=== PATIENT | male | born 1960 | race African-American/Black ===

== ENCOUNTER 2021-03-03 05:15 | Inpatient (IN) | payer MEDICAID ==
[~2021-03-03] VITALS: Ht 167.6 cm; Wt 93.2 kg
[2021-03-03] MEDS ORDERED: CHLORTHALIDONE25 MG PO (06:30)
[2021-03-03] MEDS ORDERED: NORVASC10 MG PO (06:30)
[2021-03-03 06:31] LABS: HEMATOCRIT 41.1 % (42.0-54.0); HEMOGLOBIN 13.9 g/dL (13.5-17.5); MCV 88.2 fL (80.0-100.0); MEAN PLATELET VOLUME 8.4 fL (7.4-10.4); PLATELET COUNT 262 10x3/uL (130-400); RBC 4.65 10x6/uL (4.20-6.10); RDW 14.2 % (11.5-14.5)
[2021-03-03] MEDS ORDERED: IBUPROFEN200 MG PO (06:31)
[2021-03-03 06:32] VITALS: BP 150/91; BMI 33.1
[2021-03-03 06:41] LABS: ANION GAP 15.1 mmol/L (8-16); CARBON DIOXIDE 27.1 mmol/L (21.0-32.0); CREATININE - SERUM 1.3 mg/dL (0.6-1.3); POTASSIUM - SERUM 4.2 mmol/L (3.5-5.1)
[2021-03-03 06:53] LABS: APTT 30.7 SECONDS (22.8-39.4); INR 1.13 (0.85-1.17); PROTIME 13.5 SECONDS (11.6-15.0)
--- NOTE | 2021-03-03 11:17 | NUR ---
PATIENT RECOVERED IN SURGICAL SUITE. PHASE 1 RECOVERY STARTED BY ALENA FERRER CRNA AT 0957. JATIN WEAVER RN COMPLETED RECOVERY PHASE 1 BEGINING AT 1014. TRANSPORTED TO OUTPATIENT DEPARTMENT BY RIO WEINER RN AT 1023.
[2021-03-03 14:28] VITALS: BP 122/69; Ht 167.6 cm; Wt 93.2 kg
[2021-03-03 14:29] LABS: EOSINOPHILS 3 % (0-7); LYMPHOCYTES 52 % (15-50); MONOCYTES 9 % (2-11); NEUTROPHILS 36 % (40-80); PLATELET ESTIMATE NORMAL
--- NOTE | 2021-03-03 15:14 | OP ---
PATIENT NAME: EZE VALLADARES MEDICAL RECORD: [id number] :62 LOCATION:D.M2 D.2100 ADMISSION DATE: SURGEON: ELENA TATUM MD DATE OF OPERATION: 03/03/2021 PREOPERATIVE DIAGNOSIS: Symptomatic inguinal scrotal hernia, left. POSTOPERATIVE DIAGNOSES: Symptomatic incarcerated left inguinal scrotal hernia with a sliding component and COVID positivity. PROCEDURE: Open left inguinal hernia repair with preperitoneal polypropylene mesh. SURGEON: Elena Tatum MD ACCESS NURSE: None. BLOOD LOSS: Minimal. ANESTHESIA: General. COMPLICATIONS: None. The risks, possible complications, and alternatives of the procedure were explained to the patient. He elected to proceed. OPERATIVE COURSE: The patient was conveyed to the operating room electively on 03/03/2021. General anesthesia was induced by the anesthesia staff. The abdomen and genitals were sterilely prepped and draped. A transverse incision was accomplished in the left groin. Sharp dissection was carried down through skin and subcutaneous tissue as well as Brennan fascia. The external oblique aponeurosis was then cleaned of overlying connective tissue. I incised the external oblique aponeurosis along the direction of its fibers. I then bluntly dissected down through the internal oblique and transversus abdominis muscles. It was at this time, we were told the patient was COVID positive. A preperitoneal pocket was fashioned bluntly. I was unable to reduce the hernia. I entered the hernia sac. I was able to reduce the contents, which consisted of the patient's sigmoid colon. There was no damage to the sigmoid colon during this procedure. I then reduced the hernia sac in its entirety. I ligated the hernia sac highly with a pursestring 3-0 Vicryl suture. I then excised the sac distal to this. Once I was satisfied with the preperitoneal space, I then sutured 2 ovals of polypropylene mesh together. This was done with a running #1 Surgidac. The mesh was placed in the preperitoneal space. Once I was satisfied with placement of the mesh in the preperitoneal space, I allowed the internal oblique and transversus abdominis muscles to come together. I incorporated a portion of the underlying mesh with these 0 Surgidac sutures and placed in a horizontal mattress fashion. The external oblique aponeurosis was closed with running 0 Vicryl suture. Brennan's fascia was approximated with interrupted 3-0 Vicryls. The subdermis was approximated with interrupted 3-0 Vicryl. The skin was approximated with a running intracuticular 3-0 Vicryl. Benzoin and Steri-Strips were applied. The patient was then extubated and conveyed to the post-anesthesia care unit OPERATIVE REPORT [id number] EZE VALLADARES where he was in stable condition. He will be dismissed home on Colace as well as tramadol. TRANSINT:[id number] Voice Confirmation ID: [id number] DOCUMENT ID: [id number] cc: MARICHUY Devi [phone] ELENA TATUM MD at 1514 CC: MARICHUY DEVI [phone] DICTATION DATE: 03/03/21 1041 RACE STEWARD: 03/03/21 1136 REG [facility] [address] [place] [address]
--- NOTE | 2021-03-03 15:14 | HP ---
PATIENT: EZE VALLADARES MEDICAL RECORD: [id number] ACCOUNT: [id number] LOCATION:[address] : 62 ADMISSION DATE: 03/03/21 PCP: No PCP HISTORY AND PHYSICAL EXAMINATION HISTORY OF PRESENT ILLNESS: The patient has a large inguinal scrotal hernia. It is reducible. It has been enlarging. Straining or lifting aggravates. Nothing alleviates. It has been enlarging. I saw the patient via a telehealth visit. The risks, possible complications, and alternatives of the procedure were explained to the patient. He elects to proceed. I specifically discussed with him the pathophysiology of hernias as well as how they can be repaired and that mesh would be used. CURRENT MEDICINES: None. PAST MEDICAL AND SURGICAL HISTORY: Noncontributory. REVIEW OF SYSTEMS: No obstructive symptoms such as abdominal distention, nausea or vomiting. PHYSICAL EXAMINATION: GENERAL: The patient does not appear acutely ill. He does not appear chronically ill. VITAL SIGNS: Reviewed. EARS: External ears appear normal. EYES: Extraocular movements are intact. NECK: Trachea is midline. CHEST: No intercostal retractions. PULMONARY: Nonlabored. No stridor. IMPRESSION: Symptomatic left inguinal scrotal hernia. PLAN: Open repair with mesh. TRANSINT:[id number] Voice Confirmation ID: [id number] DOCUMENT ID: [id number] cc: MARICHUY Devi [phone] ELENA TATUM MD at 1514 CC: CHILANGO MOSELEY [phone] DICTATION DATE: 03/03/21 0758 IMPORT EXPORT CLERK: 03/03/21 0844 REG [facility] [address] [place] [address]
--- NOTE | 2021-03-03 17:12 | NUR ---
MICHELLE OLIVO HEDIS NURSE NOTIIFIED OF PTS INABILITY TO MAINTAIN SAT ON RA. INHALER TREATMENT ORDERED FROM RT. SPOKE WITH DR. WEBB VIA PHONE AND ORDERS TO ADMIT AND INFORM DR. TATUM CARRIED OUT. PT DENIES ANY C/O. REPORT CALLED TO JOSE L ON MED 11 AND PT TRANSFERRED VIA STRETCHER IN STABLE CONITION ON 3L VIA NC WITH SAT 91-93%
--- NOTE | 2021-03-03 22:12 | NUR ---
REPORT RECEIVED. PT A&O, UP IN BED WITH CO AT BEDSIDE. NO S/S OF DISTRESS OBSERVED. RR EVEN & UNLABORED ON 3L. IV TO R FA W/ LR KVO. BED LOCKED AND LOWERED, CL IN REACH. ASSESSMENT COMPLETE. WILL CONT POC.
[2021-03-03 23:07] VITALS: BP 129/76
[2021-03-04] VITALS (7 sets, daily range): BP systolic 116–133; BP diastolic 69–83
[2021-03-04 06:55] LABS: C-REACTIVE PROTEIN 7.1 mg/dL (0.0-0.9)
--- NOTE | 2021-03-04 13:34 | MORECARE ---
CASE MANAGEMENT DISCHARGE SUMMARY PATIENT: EZE VALLADARES UNIT: [id number] ADM DATE: 03/03/21 AGE: 60 : 62 SEX: M ROOM/BED: D.210 AUTHOR: YOGESHDOC PHYSICIAN: REFERRING PHYSICIAN: ELENA TATUM MD DATE OF SERVICE: 03/04/21 Case Management Discharge Planning Summary DCP REVIEW SUMMARY ANTICIPATED D/C DATE: EXPECTED LOS : CASE STATUS: DCP Initiated INITIAL REVIEW: 03/03/2021 INITIAL REVIEWER: Sameer Alves FINAL DISCHARGE DISPOSITION: : FINAL REVIEWER: FINAL REVIEW DATE: DCP Focus Questions & Answers QUESTION: ANSWER : PATIENT: EZE VALLADARES ENCOUNTER: [id number] MEDICAL RECORD#: [id number] ADMISSION DATE: 03/03/2021 DISCHARGE DATE: ATTENDING MD: ELENA SERRTAO : AGE: 60 MARITAL STATUS: S DC PLAN ID: [id number] FACILITY: [facility] PRINTED ON: 03/04/21 13:34 CT All edits/amendments must be made on the electronic document DICTATION DATE: 03/04/21 133 PIGMENT PUSHER: DM 03/04/21 1334 RPT#: [id number] DC DATE: STATUS: ADM IN [facility] [address] [place] [address] END OF REPORT
--- NOTE | 2021-03-04 14:01 | MORECARE ---
CASE MANAGEMENT DISCHARGE SUMMARY PATIENT: EZE VALLADARES UNIT: [id number] ADM DATE: 03/03/21 AGE: 60 : 62 SEX: M ROOM/BED: D.210 AUTHOR: YOGESHDOC PHYSICIAN: REFERRING PHYSICIAN: ELENA TATUM MD DATE OF SERVICE: 03/04/21 Case Management Discharge Planning Summary DCP REVIEW SUMMARY ANTICIPATED D/C DATE: EXPECTED LOS : CASE STATUS: DCP Initiated INITIAL REVIEW: 03/03/2021 INITIAL REVIEWER: Sameer Alves FINAL DISCHARGE DISPOSITION: : FINAL REVIEWER: FINAL REVIEW DATE: DCP Focus Questions & Answers QUESTION: ANSWER : PATIENT: EZE VALLADARES ENCOUNTER: [id number] MEDICAL RECORD#: [id number] ADMISSION DATE: 03/03/2021 DISCHARGE DATE: ATTENDING MD: ELENA SERRATO : AGE: 60 MARITAL STATUS: S DC PLAN ID: [id number] FACILITY: [facility] PRINTED ON: 03/04/21 14:01 CT All edits/amendments must be made on the electronic document DICTATION DATE: 03/04/21 140 MANUFACTURING EXECUTIVE: DM 03/04/21 1401 RPT#: [id number] DC DATE: STATUS: ADM IN [facility] [address] [place] [address] END OF REPORT
[2021-03-05 00:15] VITALS: BP 127/76
--- NOTE | 2021-03-05 07:00 | NUR ---
PT LYING IN BED WITH HOB ELEVATED 45 DEGREES. RESP EVEN AND UNLABORED. AAO X4. DENIES NEEDS AT THIS TIME. CLIR. BED IN LOWEST POSITION. SIDE RAILS X2
[2021-03-05 07:32] VITALS: BP 128/80
[2021-03-05 11:10] VITALS: BP 111/66
[2021-03-05 15:16] VITALS: BP 113/76
--- NOTE | 2021-03-05 16:42 | NUR ---
I have reviewed this patient and I concur with the Shift Assessment completed by the Licensed Practical Nurse today this shift.
[2021-03-05 16:44] LABS: BASOPHILS 0.6 % (0-2); EOSINOPHILS 1.9 % (0-7); HEMATOCRIT 37.7 % (42.0-54.0); HEMOGLOBIN 12.3 g/dL (13.5-17.5); LYMPHOCYTES 47.6 % (15-50); MCH 29.2 pg (26.0-34.0); MCHC 32.6 g/dL (31.0-37.0); MCV 89.3 fL (80.0-100.0); MEAN PLATELET VOLUME 8.1 fL (7.4-10.4); MONOCYTES 9.9 % (2-11); PLATELET COUNT 264 10x3/uL (130-400); RBC 4.22 10x6/uL (4.20-6.10); RDW 14.5 % (11.5-14.5); WBC 10.7 10x3/uL (4.8-10.8)
[2021-03-05 17:01] LABS: ALBUMIN 3.2 g/dL (3.4-5.0); ANION GAP 11.3 mmol/L (8-16); BILIRUBIN - TOTAL 0.22 mg/dL (0.2-1.3); CALCIUM 8.6 mg/dL (8.5-10.1); CARBON DIOXIDE 27.7 mmol/L (21.0-32.0); CREATININE - SERUM 1.3 mg/dL (0.6-1.3); PROTEIN - SERUM 7.4 g/dL (6.4-8.2)
--- NOTE | 2021-03-05 19:00 | NUR ---
REPORT RECEIVED. PATIENT IS AAOX4, SITTING UP IN BED. NO S/S OF DISTRESS OBSERVED, RR EVEN AND UNLABORED ON ROOM AIR. PIV TO RT FA, PATENT, SL. PATIENT DENIES NEEDS AT THIS TIME. CL IN REACH, BED LOCKED AND LOWERED. COVID PRECAUTIONS MAINTAINED. WILL CPOC.
[2021-03-05 20:50] VITALS: BP 129/81
[2021-03-06 00:23] VITALS: BP 127/84
--- NOTE | 2021-03-06 01:36 | NUR ---
I have reviewed this patient and I concur with the Shift Assessment completed by the Licensed Practical Nurse today this shift.
--- NOTE | 2021-03-06 03:14 | NUR ---
PATIENT C/O PAIN TO THE LEFT GROIN. PRN NORCO ADMINISTERED PER ORDER.
[2021-03-06 04:58] VITALS: BP 135/91
[2021-03-06 08:09] VITALS: BP 132/79
--- NOTE | 2021-03-06 09:14 | NUR ---
PATIENT AAOX4 RESP EVEN AND NON LABORED, NO S/S OF DISTRESS, MEDICATIONS ADMINISTERED WITH NO COMPLICATIONS, NO FURTHER NEEDS AT THIS TIME, CLIR, BLP
[2021-03-06 11:37] VITALS: BP 142/94
--- NOTE | 2021-03-06 19:19 | NUR ---
PT D/C'ED WITH [facility]SPORT W/ ASSISTANCE BY 2 CO'S.
--- NOTE | 2021-03-06 19:25 | NUR ---
REPORT RECEIVED. PT AWAITING [facility] TRANSPORT TO RETURN PT BACK TO [facility]. D/C PAPERWORK COMPLETE.
--- NOTE | 2021-03-07 08:13 | MORECARE ---
CASE MANAGEMENT DISCHARGE SUMMARY PATIENT: EZE VALLADARES UNIT: [id number] ADM DATE: 03/03/21 AGE: 60 : 62 SEX: M ROOM/BED: D.2101 AUTHOR: YOGESH,DOC PHYSICIAN: REFERRING PHYSICIAN: ELENA TATUM MD DATE OF SERVICE: 03/07/21 Case Management Discharge Planning Summary DCP REVIEW SUMMARY ANTICIPATED D/C DATE: EXPECTED LOS : CASE STATUS: DCP Initiated INITIAL REVIEW: 03/03/2021 INITIAL REVIEWER: Sameer Alves FINAL DISCHARGE DISPOSITION: : FINAL REVIEWER: FINAL REVIEW DATE: DCP Focus Questions & Answers QUESTION: ANSWER : PATIENT: EZE VALLADARES ENCOUNTER: [id number] MEDICAL RECORD#: [id number] ADMISSION DATE: 03/03/2021 DISCHARGE DATE: 03/06/2021 ATTENDING MD: ELENA SERRATO : AGE: 60 MARITAL STATUS: S DC PLAN ID: [id number] FACILITY: [facility] PRINTED ON: 03/07/21 8:12 CT All edits/amendments must be made on the electronic document DICTATION DATE: 03/07/21811 SKILLED NURSING FACILITY COUNSELOR: DM 03/07/21811 RPT#: [id number] DC DATE:03/06/21 STATUS: DIS IN [facility] [address] [place] [address] END OF REPORT
== END 2021-03-06 19:45 | disposition home or self-care (01) | DRG 350 ==
LOC: D.OPS 05:15 → D.M2 14:07 → D.OPS 14:08 → D.M2 03-06 19:45
PROVIDERS: Anesthesiology; Internal Medicine Pulmonary Disease; ADMIT Surgery; ATTEND Surgery
PROC: 0YU60JZ Supplement Left Inguinal Region with Synthetic Substitute, Open Approach (ICD-10-PCS; principal; 2021-03-03 08:00)
DX: K40.90 Unilateral inguinal hernia, without obstruction or gangrene, not specified as recurrent (principal); U07.1 COVID-19; I10 Essential (primary) hypertension; R09.02 Hypoxemia